=== PATIENT | male | born 1990 | race Caucasian/White ===

== ENCOUNTER 2025-03-31 17:51 | Emergency (ER) | payer OTHER ==
[2025-03-31 18:19] VITALS: BP 105/74; PULSE 82; RESP 22; TEMP 98.9; O2SAT 97
[2025-03-31] MEDS ORDERED: MORPHINE SULFATE 4 MG INJ ONE (18:21)
[2025-03-31 18:22] LABS: BASOPHIL % 0.2 % (0.2-1.2); Basophil (Absolute #) 0.02 x10^3/uL (0.01-0.08); Eosinophil (Absolute #) 0.09 x10^3/uL (0.04-0.54); Hematocrit 43.4 % (40.1-51.0); Hemoglobin 15.0 g/dL (13.7-17.5); IMMATURE GRAN # 0.05 x10^3u/L (0.001-0.031); IMMATURE GRAN % 0.5 % (0.001-0.429); Lymphocyte (Absolute #) 1.30 x10^3/uL (1.32-3.57); Mean Corpuscular Hemoglobin 30.4 pg (25.7-32.2); Mean Corpuscular Hgb Concent. 34.6 g/dL (32.3-36.5); Monocyte (Absolute #) 0.73 x10^3/uL (0.30-0.82); NUCLEATED RBC # 0.00 x10^3u/L (0.00-0.012); NUCLEATED RBC % 0.0 % (0.00-0.2); Platelet Count 222 x10^3/uL (163-337); Red Blood Count 4.94 x10^6/uL (4.63-6.08); White Blood Count 9.2 x10^3/uL (4.23-9.07)
[2025-03-31] MEDS: MORPHINE SULFATE 4 MG INJ IV ONE (18:24)
--- NOTE | 2025-03-31 18:26 | ERPHSYRPT ---
- History of Present Illness Patient Subjective Stated Complaint: Pt. states, "I woke up at 1 am today with chest pain and heaviness. I went to [facility] and they said eveything is fine, but it is getting worse. I want a second opinion." Triage Nursing Assessment: Pt. ambulates to room without diff., Skin P/W/D, Resp. even unlabored, pt. is anxious, no edema. ST Elevation present in all 3 leads. Physician History: Presents with chest pain, onset of symptoms around 1 AM, he was seen at [facility] emergency department last night with similar type symptoms apparently he had a workup and was subsequently discharged home, his pain has persisted, he came to the emergency for further evaluation, he has no known history of coronary artery disease, he does have a known history of previous pulmonary embolus postoperatively, and he takes Eliquis, he denies diabetes, he denies hypertension, he does not have a family history of coronary disease in early age Timing/Duration: hour(s) (17), constant Quality: pressure, tightness Location: substernal Chest Pain Radiation: no radiation Severity of Pain-Max: moderate Severity of Pain-Current: moderate Modifying Factors: Improves With: nothing Associated Symptoms: No nausea, No vomiting, No shortness of breath, No diaphoresis, No dizziness, No edema Nitro Today/Relief: no nitro taken today Aspirin Treatment Today: 325 mg x 1 Allergies/Adverse Reactions: No Known Drug Allergies Allergy (Unverified 04/20/12 21:30) Home Medications: No Home Meds 04/20/12 [History] Hx Tetanus, Diphtheria Vaccination/Date Given: Yes Hx Influenza Vaccination/Date Given: No Hx Pneumococcal Vaccination/Date Given: No Travel Risk - International Travel Have you traveled outside of the country in past 3 weeks: No - Emerging Infectious Disease Are you exhibiting symptoms associated with any current EIDs: No - Past Medical History Pertinent Past Medical History: No Other Medical History: PE's post op - Past Surgical History Past Surgical History: Yes Gastrointestinal: Appendectomy Other Surgical History: abdominal surgery as , adhesion repair/abdominal surgery last year - Social History Smoking Status: Never smoker Exposure to second hand smoke: No Drug Use: none - Social Determinants of Health Will the patient participate in the screening: Declined to provide - Nursing Vital Signs Nursing Vital Signs: Initial Vital Signs Temperature 98.9 F 03/31/25 17:52 Pulse Rate 73 03/31/25 17:52 Respiratory Rate 18 03/31/25 17:52 Blood Pressure 105/74 03/31/25 17:52 O2 Sat by Pulse Oximetry 96 03/31/25 17:52 Pain Scale Pain Intensity 10 - Physical Exam General Appearance: no apparent distress, alert Eye Exam: PERRL/EOMI, eyes nml inspection Ears, Nose, Throat Exam: normal ENT inspection, TMs normal, pharynx normal Neck Exam: normal inspection, non-tender, supple, full range of motion Respiratory Exam: normal breath sounds, lungs clear Cardiovascular Exam: regular rate/rhythm, normal heart sounds, normal peripheral pulses Gastrointestinal/Abdomen Exam: soft, normal bowel sounds Extremity Exam: normal inspection, normal range of motion, pelvis stable Neurologic Exam: alert, oriented x 3, cooperative, 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 as tested Skin Exam: normal color, warm, dry SpO2 Interpretation: normal SpO2: 97 Ordered Tests: Active Orders 24 hr Category Date Time Status CHEST 1 VIEW (PORTABLE) Stat Exams 03/31/25 18:14 Ordered CBC W DIFF Stat Lab 03/31/25 18:10 Completed CMP Stat Lab 03/31/25 18:10 Received TROPONIN Q4H Lab 03/31/25 18:10 Received TROPONIN Q4H Lab 03/31/25 22:15 Ordered TROPONIN Q4H Lab 04/01/25 02:15 Ordered Medication Summary Discontinued Medications Generic Name Dose Route Start Last Admin Trade Name Fatoumata PRN Reason Stop Dose Admin Morphine Sulfate Confirm 03/31/25 18:21 Morphine Sulfate 4 Mg/Ml Injection Administered 03/31/25 18:22 Dose 4 mg .ROUTE .STK-MED ONE Morphine Sulfate 4 mg 03/31/25 18:23 03/31/25 18:24 Morphine Sulfate 4 Mg/Ml Injection IV 03/31/25 18:24 4 mg STAT ONE Administration Lab/Rad Data: Laboratory Result Diagrams 03/31/25 18:10 Laboratory Results 03/31/25 Range/Units 18:10 WBC 9.2 H (4.23-9.07) x10^3/uL RBC 4.94 (4.63-6.08) x10^6/uL Hgb 15.0 (13.7-17.5) g/dL Hct 43.4 (40.1-51.0) % MCV 87.9 (79.0-92.2) fL MCH 30.4 (25.7-32.2) pg MCHC 34.6 (32.3-36.5) g/dL RDW 11.7 (11.6-14.4) % Plt Count 222 (163-337) x10^3/uL MPV 8.8 L (9.4-12.4) fL Gran % 76.3 H (34.0-67.9) % Immature Gran % (Auto) 0.5 H (0.001-0.429) % Nucleat RBC Rel Count 0.0 (0.00-0.2) % Eos # (Auto) 0.09 (0.04-0.54) x10^3/uL Immature Gran # (Auto) 0.05 H (0.001-0.031) x10^3u/L Absolute Lymphs (auto) 1.30 L (1.32-3.57) x10^3/uL Absolute Monos (auto) 0.73 (0.30-0.82) x10^3/uL Absolute Nucleated RBC 0.00 (0.00-0.012) x10^3u/L Lymphocytes % 14.1 L (21.8-53.1) % Monocytes % 7.9 (5.3-12.2) % Eosinophils % 1.0 (0.8-7.0) % Basophils % 0.2 (0.2-1.2) % Absolute Granulocytes 7.00 H (1.78-5.38) x10^3/uL Basophils # 0.02 (0.01-0.08) x10^3/uL - Progress Progress Note: 03/31/25 18:[address] segment elevation in 2 3 and aVF, V4 and 5, no reciprocal change, Consults cardiology at [facility], unfortunately [employer] is backed up secondary to other procedures, they recommended contacting [facility] cardiology for possible transfer 03/31/25 18:34 Discussed with at [facility] And excepted transfer of the patient and the patient will go directly to the emergency department - Departure Departure Disposition: Transfer Clinical Impression: STEMI (ST elevation myocardial infarction) Qualifiers: Involved coronary artery: right coronary artery Qualified Code(s): I21.11 - ST elevation (STEMI) myocardial infarction involving right coronary artery Condition: Stable Critical Care Time: Yes Critical Care Time(excluding separately billable procedures): Critical 30-74 mins
[2025-03-31 19:18] LABS: Calcium 9.2 mg/dL (8.4-10.2); Carbon Dioxide 23.0 mmol/L (22-30); Creatinine 1 0.69 mg/dL (0.66-1.25); EST GLOMERULAR FILTRATION RATE 123.8 ML/MIN; Glucose 99.0 mg/dL (74-106); Potassium 4.1 mmol/L (3.5-5.1); SGOT/AST 27.0 U/L (17-59); SGPT/ALT 19.0 U/L (0-50); Total Protein 7.6 g/dL (6.3-8.2)
--- NOTE | 2025-04-01 09:10 | XRAY ---
Indication: Chest pain. Comparison: November 02, 2024 Portable chest less inflated with stable minimal right base and new minimal left base discoid atelectasis/scarring. Remaining heart and lungs unremarkable. Bony thorax intact. No acute findings.
== END 2025-03-31 18:28 | disposition short-term general hospital (02) ==
LOC: ED 17:51
DX: I21.11 ST elevation (STEMI) myocardial infarction involving right coronary artery (principal); R07.9 Chest pain, unspecified